=== PATIENT | male | born 1980 | race Two or more races ===

== ENCOUNTER 2016-10-16 10:24 | Emergency (ER) | payer SELFPAY ==
[~2016-10-16] VITALS: Ht 175.3 cm; Wt 68.0 kg
[2016-10-16 10:33] VITALS: BP 118/76
== END 2016-10-16 12:36 | disposition home or self-care (01) ==
LOC: ER 12:22
DX: M54.6 Pain in thoracic spine (principal)
CPT/HCPCS: 99283; Z7610

== ENCOUNTER 2016-12-09 14:34 | Emergency (ER) | payer OTHER ==
[~2016-12-09] VITALS: Ht 175.3 cm; Wt 68.0 kg
[2016-12-09 14:59] VITALS: BP 117/63
== END 2016-12-09 16:12 | disposition left against medical advice (07) ==
LOC: ER 14:47
DX: Z00.8 Encounter for other general examination (principal); Z53.21 Procedure and treatment not carried out due to patient leaving prior to being seen by health care provider